=== PATIENT | male | born 1980 | race African-American/Black ===

== ENCOUNTER 2019-04-22 01:34 | Inpatient (IN) | payer SELFPAY ==
[2019-04-22] MEDS ORDERED: SUCCINYLCHOLINE CHLORIDE INJ 200 MG/10 ML VIAL IV ONE (01:39)
[2019-04-22] MEDS ORDERED: DIAZEPAM INJ 10 MG/2 ML DISP.SYRIN IV ONE ×2 (01:39→02:01)
[2019-04-22] MEDS ORDERED: ETOMIDATE INJ/PF 20 MG/10 ML SDV IV ONE ×2 (01:39→05:00)
[2019-04-22] MEDS ORDERED: PROPOFOL 1,000 MG/100 ML INFUS..BTL IV PRN (01:53)
[2019-04-22] MEDS ORDERED: LEVETIRACETAM 1000 MG/NACL-ISO 1,000 MG/100 ML RTUPB IV ONE (01:54)
[2019-04-22] MEDS ORDERED: HYDROMORPHONE HCL INJ/PF 2 MG/ML AMPULE IV ONE (02:03)
[2019-04-22] MEDS ORDERED: VECURONIUM BROMIDE INJ 10 MG VIAL IV ONE ×2 (02:04→02:13)
[2019-04-22] MEDS: PROPOFOL 1,000 MG/100 ML INFUS..BTL IV PRN ×4 (02:18→13:00)
[2019-04-22] MEDS ORDERED: PROPOFOL INJ 200 MG/20 ML VIAL IV ONE (02:19)
[2019-04-22 02:41] LABS: ABSOLUTE EOSINOPHILS # (AUTO) 0.1 10^3/uL (0.0-0.6); ABSOLUTE MONOCYTES (AUTO) 0.7 10^3/uL (0.1-1.4); HEMATOCRIT 49.9 % (37.9-51.0); LYMPHOCYTES % (AUTO) 36.7 % (13-45); MEAN CORPUSCULAR VOLUME 90 fl (80-97); PLATELET COUNT 321 10^3/uL (150-450); RED BLOOD COUNT 5.57 10^6/uL (4.35-5.55); TOTAL CELLS COUNTED % (AUTO) 100 %
[2019-04-22 02:48] LABS: ABSOLUTE NEUT (AUTO) 7.8 10^3/uL (1.7-8.2); BASOPHILS % (AUTO) 0.3 % (0-2); EOSINOPHILS % (AUTO) 0.5 % (0-6); HEMOGLOBIN 16.3 g/dL (13.5-17.0); MEAN CORPUSCULAR HEMOGLOBIN 29.3 pg (27.0-33.4); MEAN CORPUSCULAR HGB CONC 32.7 g/dL (32.0-36.0); MONOCYTES % (AUTO) 4.9 % (3-13); RED CELL DISTRIBUTION WIDTH 14.2 % (11.5-14.0); SEGMENTED NEUTROPHILS % (AUTO) 57.6 % (42-78); WHITE BLOOD COUNT 13.6 10^3/uL (4.0-10.5)
[2019-04-22 03:05] LABS: ALBUMIN 4.7 g/dL (3.5-5.0); ALKALINE PHOSPHATASE 68 U/L (38-126); ASPARTATE AMINO TRANSFERASE 37 U/L (17-59); BILIRUBIN,DIRECT 0.3 mg/dL (0.0-0.4); BILIRUBIN,TOTAL 0.3 mg/dL (0.2-1.3); BLOOD UREA NITROGEN 10 mg/dL (7-20); CALCIUM 9.4 mg/dL (8.4-10.2); CARBON DIOXIDE 23 mmol/L (22-30); CHLORIDE 95 mmol/L (98-107); GLUCOSE 180 mg/dL (75-110); POTASSIUM 4.8 mmol/L (3.6-5.0); TOTAL PROTEIN 7.3 g/dL (6.3-8.2)
[2019-04-22 03:06] LABS: ALCOHOL < 10 mg/dL (NONE DETECTED)
[2019-04-22 03:14] LABS: ANION GAP 22 (5-19)
--- NOTE | 2019-04-22 03:36 | RADIOLOGY REPORT (SQ) ---
CT head without contrast on 04/22/2019 at 2:57 AM CLINICAL INDICATION: Altered mental status, seizure TECHNIQUE: Multiple axial images are obtained throughout the head without the administration of contrast. This exam was performed according to our departmental dose-optimization program, which includes automated exposure control, adjustment of the mA and/or kV according to patient size and/or use of iterative reconstruction technique. Total DLP is 937.36 mGy*cm. COMPARISON: None FINDINGS: There is no hydrocephalus. There is no CT evidence of acute infarct. There is no hemorrhage. There are no abnormal extra-axial fluid collections. There is no mass, mass effect or midline shift. No bony abnormality is noted. IMPRESSION: No acute intracranial abnormality.
--- NOTE | 2019-04-22 03:41 | RADIOLOGY REPORT (SQ) ---
Chest one view on 04/22/2019 at 2:32 AM CLINICAL INDICATION: ET tube placement COMPARISON: None FINDINGS: ET tube tip is in the lower thoracic trachea approximately 1.1 cm above the level the stephen. Would recommend retraction of the ET tube back 2 cm for more optimal positioning. NG tube extends just into the upper stomach with its side-port still in the distal esophagus. Would recommend advancement of the NG tube by 8 cm for more optimal positioning. A few wires are noted projecting over the upper abdomen. The lungs are clear. Cardiac, hilar and mediastinal contours are within normal limits. Pulmonary vascularity is within normal limits. IMPRESSION: ET tube and NG tube as above, recommend repositioning of those tubes as above. Otherwise no acute disease.
[2019-04-22 04:30] LABS: APPEARANCE,URINE CLEAR; BILIRUBIN,URINE NEGATIVE (NEGATIVE); COLOR,URINE YELLOW; GLUCOSE, URINE 150 mg/dL (NEGATIVE); KETONES,URINE NEGATIVE (NEGATIVE); LEUKOCYTE ESTERASE,URINE NEGATIVE (NEGATIVE); NITRITE,URINE NEGATIVE (NEGATIVE); PROTEIN,URINE NEGATIVE (NEGATIVE); URINE SPECIFIC GRAVITY 1.012; UROBILINOGEN,URINE NEGATIVE mg/dL (<2.0)
--- NOTE | 2019-04-22 04:32 | ER Document Report ---
Entered by J LUIS MIGUEL SCRIBE 04/22/19 0140 Acting as scribe for:BRITTANEY ACEVEDO IV, MD ED General - General Stated Complaint: POSSIBLE OVERDOSE,SEIZURE Time Seen by Provider: 04/22/19 01:38 Mode of Arrival: Medic Information source: Emergency Med Personnel Notes: This 38 year old male patient brought in by EMS presents to the ED today with complaints of cardiac arrest and possible overdose that occurred prior to arrival per EMS. EMS states that they administered 4 mg Narcan IM to the patient and that the patient's blood pressure was stable. EMS reports that the patient's pupils were restricted so they administered an additional 1 mg Narcan IV and the patient's respirations increased. EMS reports that patient woke up in a psychotic state and started having seizure-like activity. EMS administered 2.5 mg versed and ativan, but states that patient continued to have seizure-like activity. EMS states that the patient does have a history of seizures and that the patient's friends on scene stated that the patient took cocaine that was possibly laced. TRAVEL OUTSIDE OF THE [place] IN LAST 30 DAYS: No - Related Data Allergies/Adverse Reactions: No Known Allergies Allergy (Unverified 06/22/13 13:33) Past Medical History - General Information source: [facility] Records - Social History Smoking Status: Unknown if Ever Smoked Family History: Reviewed & Not Pertinent Past Surgical History: Reports: Hx Oral Surgery - Immunizations Hx Diphtheria, Pertussis, Tetanus Vaccination: Yes Review of Systems - Review of Systems -: Yes ROS unobtainable due to patient's medical condition - Unresponsive Physical Exam - Vital signs Vitals: Temp Pulse Resp BP Pulse Ox 96.6 F L 119 H 21 H 151/134 H 100 04/22/19 01:34 04/22/19 01:34 04/22/19 01:34 04/22/19 01:34 04/22/19 01:34 - General General appearance: Unresponsive, Other - Epileptic activiy and GCS 4 initially. Patient appeared to improve with IV fluids. - HEENT Head: Normocephalic, Atraumatic Eyes: Normal Pupils: PERRL - Respiratory Respiratory status: No respiratory distress Chest status: Nontender Breath sounds: Normal Chest palpation: Normal - Cardiovascular Rhythm: Tachycardia Heart sounds: Normal auscultation Murmur: No - Abdominal Inspection: Normal Distension: No distension Bowel sounds: Normal Tenderness: Nontender Organomegaly: No organomegaly - Back Back: Normal, Nontender - Extremities General upper extremity: Normal inspection General lower extremity: Normal inspection - Neurological Neuro grossly intact: Yes - Psychological Associated symptoms: Other - Unresponsive - Skin Skin Temperature: Warm Skin Moisture: Dry Skin Color: Normal Course - Vital Signs Vital signs: Temp Pulse Resp BP Pulse Ox 96.6 F L 115 H 16 99/80 L 100 04/22/19 01:34 04/22/19 02:58 04/22/19 05:21 04/22/19 05:21 04/22/19 05:21 - Laboratory Result Diagrams: 04/22/19 01:57 04/22/19 01:57 Laboratory results interpreted by me: 04/22/19 04/22/19 04/22/19 01:57 01:57 04:04 WBC 13.6 H RBC 5.57 H RDW 14.2 H Absolute Lymphs (auto) 5.0 H Chloride 95 L Anion Gap 22 H Glucose 180 H Urine Glucose (UA) 150 H Urine Blood MODERATE H - Consults dr. anderson, runner out Time consulted: 05:10 Reason for consultation: 04/22/19 05:14 drug overdose, pt intubated Consulted provider: will see as inpatient Procedures - Intubation Orotracheal Time of Intubation: 01:48 Airway evaluation: Normal anatomy Mallampati Classification: Class 1 Medications: Etomidate, Succinylcholine Intubation method: Orotracheal Blade type: Otero Blade size: 4 ETT size: 8.0 ETT secured at: Lips ETT secured at (cm): 24 Breath Sounds after Intubation: Equal End tidal CO2 confirmed: Yes Post Intubation Xray: Yes - ett just above stephen, respiratory therapist ordered to pull tube back 2 cm Intubation Complications: No complications Critical Care Note - Critical Care Note Total time excluding time spent on procedures (mins): 60 Discharge - Discharge Clinical Impression: Seizure disorder Drug overdose, multiple drugs Qualifiers: Encounter type: initial encounter Injury intent: undetermined intent Qualified Code(s): T50.914A - Poisoning by multiple unspecified drugs, medicaments and biological substances, undetermined, initial encounter Condition: Fair Disposition: ADMITTED INPATIENT Admitting Provider: Esdras (Differential Tester) Unit Admitted: ICU I personally performed the services described in the documentation, reviewed and edited the documentation which was dictated to the scribe in my presence, and it accurately records my words and actions.
[2019-04-22 04:43] LABS: URINE AMPHETAMINES SCREEN NEGATIVE; URINE BARBITURATES SCREEN NEGATIVE; URINE MARIJUANA (THC) SCREEN NEGATIVE; URINE METHADONE SCREEN NEGATIVE; URINE PHENCYCLIDINE SCREEN NEGATIVE
[2019-04-22 04:44] LABS: URINE BENZODIAZEPINES SCREEN UNCONFIRMED POSITIVE; URINE COCAINE SCREEN UNCONFIRMED POSITIVE
[2019-04-22] MEDS ORDERED: INFLUENZA QUAD (6MOS+) 2019-20 VAC 0.5 ML SYR IM ONE (07:40)
[2019-04-22] MEDS ORDERED: GLUCAGON,HUMAN RECOMB 1 MG INJ SUBCUT PRN (09:16)
[2019-04-22] MEDS ORDERED: DEXTROSE 50%-WATER 25 GM/50 ML DISP.SYRIN IV PRN ×2 (09:16)
[2019-04-22] MEDS ORDERED: DEXTROSE 40% GEL 15 GM TUBE PO PRN ×2 (09:16)
[2019-04-22] MEDS ORDERED: IPRATROPIUM/ALBUTEROL 0.5-2.5 MG/3 ML AMPUL NEB PRN (09:16)
[2019-04-22] MEDS ORDERED: ACETAMINOPHEN 325 MG TABLET PO PRN (09:16)
[2019-04-22] MEDS ORDERED: PHARMACY COMMUNICATION ORDER MC NR (09:30)
[2019-04-22] MEDS ORDERED: ACETAMINOPHEN 325 MG TABLET NG PRN (09:43)
--- NOTE | 2019-04-22 10:31 | RADIOLOGY REPORT (SQ) ---
EXAM DESCRIPTION: KUB/ABDOMEN (SINGLE VIEW) COMPLETED DATE/TIME: 04/22/2019 9:50 am REASON FOR STUDY: Check Placement of NG Tube COMPARISON: None. NUMBER OF VIEWS: One view. TECHNIQUE: Supine radiographic image of the abdomen acquired. LIMITATIONS: None. FINDINGS: BOWEL GAS PATTERN: Normal bowel gas pattern. No dilated loops. Prominent stool throughout the colon. CALCIFICATIONS: No suspicious calcifications. SOFT TISSUES: No gross mass or suggestion of organomegaly. HARDWARE: Nasogastric tube in the stomach. BONES: No acute fracture. No worrisome bone lesions. OTHER: No other significant finding. IMPRESSION: NASOGASTRIC TUBE IN THE STOMACH. NO RADIOGRAPHIC EVIDENCE FOR ACUTE ABDOMINAL DISEASE. TECHNICAL DOCUMENTATION: JOB ID: [id number] [employer]- All Rights Reserved Reading location - IP/workstation name: [email or web address]
[2019-04-22] MEDS: RINGERS SOLUTION,LACTATED 1,000 ML IV PRN (10:46)
[2019-04-22] MEDS: CEFTRIAXONE 1 GM/D5W RTU 1 GM/50 ML RTUPB IV SCH (10:46)
[2019-04-22] MEDS: ASPIRIN 81 MG TABLET, CHEWABLE PO SCH (10:47)
[2019-04-22] MEDS: FAMOTIDINE INJ/PF 20 MG/2 ML SDV IV SCH ×2 (10:47→21:54)
[2019-04-22] MEDS: ENOXAPARIN SODIUM INJ 40 MG/0.4 ML DISP.SYRIN SUBCUT SCH (10:47)
--- NOTE | 2019-04-22 11:01 | PDOC CRITICAL CARE PROG REPORT ---
General Date:: 04/22/19 - Critical Care Attending Events in the past 12 to 24 Hours:: Pt remains intubated and sedated Reason for ICU Addmission:: Respiratory Failure - Medications: Medications reviewed and adjusted accordingly: Yes Physical Exam Vital Signs: Temp Pulse Resp BP Pulse Ox 96.8 F L 93 16 130/107 H 100 04/22/19 08:00 04/22/19 08:00 04/22/19 08:00 04/22/19 08:00 04/22/19 09:18 Intake & Output 04/21/19 04/22/19 04/23/19 06:59 06:59 06:59 Intake Total 188 131 Output Total 550 320 Balance -362 -189 Weight 70.3 kg 69.1 kg Weight/Height Weight 69.1 kg Height 5 ft 7 in General appearance: PRESENT: no acute distress, well-developed, well-nourished, other - intubated, sedated Head exam: PRESENT: atraumatic, normocephalic Respiratory exam: PRESENT: unlabored Cardiovascular exam: PRESENT: RRR GI/Abdominal exam: PRESENT: soft Gentrourinary exam: PRESENT: indwelling catheter Extremities exam: PRESENT: other - no edema Laboratory/Radiographs Laboratory Results: 04/22/19 01:57 04/22/19 01:57 04/22/19 04/22/19 04/22/19 01:57 01:57 04:04 WBC 13.6 H RBC 5.57 H Hgb 16.3 Hct 49.9 MCV 90 MCH 29.3 MCHC 32.7 RDW 14.2 H Plt Count 321 Seg Neutrophils % 57.6 Sodium 139.6 Potassium 4.8 Chloride 95 L Carbon Dioxide 23 Anion Gap 22 H BUN 10 Creatinine 0.96 Est GFR ( Amer) > 60 Glucose 180 H Calcium 9.4 Total Bilirubin 0.3 AST 37 Alkaline Phosphatase 68 Total Protein 7.3 Albumin 4.7 Urine Color YELLOW Urine Appearance CLEAR Urine pH 5.0 Ur Specific [place] 1.012 Urine Protein NEGATIVE Urine Glucose (UA) 150 H Urine Ketones NEGATIVE Urine Blood MODERATE H Urine Nitrite NEGATIVE Ur Leukocyte Esterase NEGATIVE Urine WBC (Auto) 0 Urine RBC (Auto) 1 Impressions: Head CT 04/22/19 01:54 IMPRESSION: No acute intracranial abnormality. Chest X-Ray 04/22/19 01:57 IMPRESSION: ET tube and NG tube as above, recommend repositioning of those tubes as above. Otherwise no acute disease. KUB X-Ray 04/22/19 09:20 IMPRESSION: NASOGASTRIC TUBE IN THE STOMACH. NO RADIOGRAPHIC EVIDENCE FOR ACUTE ABDOMINAL DISEASE. EKG: ST elevation in anterior leads. All labs, radiographs, diagnostic studies and EKGs were personally reviewed: Yes Assessment and Plan - Diagnosis (1) Respiratory failure Qualifiers: Chronicity: acute Respiratory failure complication: hypercapnia Qualified Code(s): J96.02 - Acute respiratory failure with hypercapnia Is this a current diagnosis for this admission?: Yes (2) Drug overdose, multiple drugs Qualifiers: Encounter type: initial encounter Injury intent: undetermined intent Qualified Code(s): T50.914A - Poisoning by multiple unspecified drugs, medica ments and biological substances, undetermined, initial encounter Is this a current diagnosis for this admission?: Yes (3) Seizure disorder Is this a current diagnosis for this admission?: Yes Plan Summary: Assessment: Critically ill 38 yo man with acute respiratory failure,drug overdose, seizure disorder, cocaine intoxication Plan: 1. Respiratory: acute respiratory failure. Pt intubated in the ED. Continue full vent support 2. CV: heart rate and BP acceptable. EKG shows ST elevation in anterior leads. Will check troponins. Will order echo. Will start asa 3. Neuro: seizures. h/o seizure disorder. Continue proprofol. Start keppra. EEG not available until 04/24. 4: ID: leukocytosis. Will repeat CXR. will order cultures and check for influenza. Will start rocephin empirically 5. Psych: drug abuse, cocain intoxication 6. Endocrine: monitoring blood sugars 7. Nutrition: start tube feeds 8. Prophylaxis: lovenox Critical Time Critical Time (minutes): 40 Level of Care: ICU -: 1. The care of a critical patient is a dynamic process. This note is a guest services representative synopsis but static in nature. The timeframe for treatments given in order is not necessarily the actual time these treatments may have been done. 2. This patient requires critical care secondary to ongoing requirements for therapy not offered or safe outside the critical care environment. Transfer to a lower level of care will result in altered life or limb morbidity and mortality. 3. Multidisciplinary rounds completed. 4. ABCDE bundle addressed.
[2019-04-22] MEDS ORDERED: SUCCINYLCHOLINE CHLORIDE INJ 200 MG/10 ML VIAL ONE (11:20)
[2019-04-22] MEDS: LORAZEPAM INJ 2 MG/1 ML VIAL IV PRN ×2 (13:42→16:55)
[2019-04-22] MEDS: ONDANSETRON HCL INJ/PF 4 MG/2 ML SDV IV PRN ×3 (13:42→22:38)
[2019-04-22 16:37] LABS: A TYPE INFLUENZA AG NEGATIVE (NEGATIVE); B INFLUENZA AG NEGATIVE (NEGATIVE)
[2019-04-22] MEDS ORDERED: LEVETIRACETAM 500 MG/NACL-ISO 500 MG/100 ML RTUPB IV SCH (22:00)
[2019-04-22] MEDS ORDERED: LEVETIRACETAM 500 MG in NORMAL SALINE 100 ML IV SCH (22:00)
[2019-04-23] MEDS: RINGERS SOLUTION,LACTATED 1,000 ML IV PRN (00:09)
[2019-04-23] MEDS: PROPOFOL 1,000 MG/100 ML INFUS..BTL IV PRN (00:09)
--- NOTE | 2019-04-23 00:16 | EKG REPORT ---
SEVERITY:- ABNORMAL ECG - SINUS TACHYCARDIA ST ELEVATION SUGGESTS PERICARDITIS : Confirmed by: Ian Orellana 23-Apr-2019 00:16:02
--- NOTE | 2019-04-23 00:16 | EKG REPORT ---
SEVERITY:- ABNORMAL ECG - SINUS RHYTHM ST ELEVATION SUGGESTS PERICARDITIS : Confirmed by: Ian Orellana 23-Apr-2019 00:15:47
[2019-04-23 06:46] LABS: HEMATOCRIT 41.5 % (37.9-51.0); HEMOGLOBIN 14.3 g/dL (13.5-17.0); MEAN CORPUSCULAR HEMOGLOBIN 29.5 pg (27.0-33.4); MEAN CORPUSCULAR HGB CONC 34.4 g/dL (32.0-36.0); PLATELET COUNT 255 10^3/uL (150-450); RED BLOOD COUNT 4.84 10^6/uL (4.35-5.55); RED CELL DISTRIBUTION WIDTH 14.4 % (11.5-14.0); WHITE BLOOD COUNT 9.4 10^3/uL (4.0-10.5)
[2019-04-23 06:54] LABS: MEAN CORPUSCULAR VOLUME 86 fl (80-97)
[2019-04-23 07:06] LABS: ANION GAP 5 (5-19); BLOOD UREA NITROGEN 11 mg/dL (7-20); CALCIUM 8.9 mg/dL (8.4-10.2); CARBON DIOXIDE 31 mmol/L (22-30); CHLORIDE 103 mmol/L (98-107); GLUCOSE 92 mg/dL (75-110); POTASSIUM 4.1 mmol/L (3.6-5.0)
--- NOTE | 2019-04-23 07:17 | RADIOLOGY REPORT (SQ) ---
EXAM: XR Chest, 1 View EXAM DATE/TIME: 04/23/2019 6:53 AM CLINICAL HISTORY: The patient is 38 years old and is Male; Possible aspiration TECHNIQUE: Frontal view of the chest. COMPARISON: Chest radiograph from 04/22/2019 at 2:32 AM FINDINGS: LUNGS: Unremarkable. No consolidation. PLEURAL SPACE: Unremarkable. No pneumothorax. HEART: No significant enlargement of the cardiac silhouette. MEDIASTINUM: Unremarkable. BONES/JOINTS: The bones are unchanged. TUBES, LINES AND DEVICES: Endotracheal tube terminates 4 cm above the stephen. Enteric tube terminates at the level of the mid to upper thoracic esophagus. IMPRESSION: Enteric tube terminates at the level of the mid to upper thoracic esophagus. Recommend advancement.
[2019-04-23] MEDS ORDERED: LEVETIRACETAM 500 MG TABLET PO SCH (10:00)
[2019-04-23] MEDS: CEFTRIAXONE 1 GM/D5W RTU 1 GM/50 ML RTUPB IV SCH (10:58)
[2019-04-23] MEDS: ASPIRIN 81 MG TABLET, CHEWABLE PO SCH (10:59)
[2019-04-23] MEDS: ENOXAPARIN SODIUM INJ 40 MG/0.4 ML DISP.SYRIN SUBCUT SCH (10:59)
--- NOTE | 2019-04-23 14:51 | PDOC DISCHARGE SUMMARY ---
Impression - Admit/DC Date/PCP Admission Date/Primary Care Provider: 04/22/19 05:39 Discharge Date: 04/23/19 - Assessment Summary: This patient is a 38 yo man who was brought to the ED with an altered LOC and intubated for airway protection. He is now awake oriented and extubated. He admits to cocaine use and may have a seizure disorder. It is not known if he has a disorder or this is due to cocaine. He has eaten, walked, will go home with his mother. EEG and keppra as out patient. - Additional Information Resuscitation Status: Full Code Discharge Diet: Regular Discharge Activity: Activity As Tolerated Referrals: CARLOS ALBERTO PULLIAM DO [NO LOCAL MD] - Follow up as needed Home Medications: No Home Medications 04/23/19 History of Present Illiness History of Present Illness: SAMM MOYA is a 38 year old male Hospital Course Hospital Course: He did well, was extubated easily. Ready to go home. Physical Exam Vital Signs: Temp Pulse Resp BP Pulse Ox 99.0 F 85 23 H 112/69 98 04/23/19 12:00 04/23/19 12:00 04/23/19 12:00 04/23/19 12:00 04/23/19 12:00 Intake & Output 04/22/19 04/23/19 04/24/19 06:59 06:59 06:59 Intake Total 188 1600 100 Output Total 550 1164 550 Balance -362 436 -450 Weight 70.3 kg 69.1 kg General appearance: PRESENT: no acute distress, well-developed, well-nourished Head exam: PRESENT: atraumatic, normocephalic Eye exam: PRESENT: conjunctiva pink, EOMI, PERRLA. ABSENT: scleral icterus Ear exam: PRESENT: normal external ear exam Mouth exam: PRESENT: moist, tongue midline Respiratory exam: PRESENT: clear to auscultation danitza. ABSENT: rales, rhonchi, wheezes Cardiovascular exam: PRESENT: RRR. ABSENT: diastolic murmur, rubs, systolic murmur GI/Abdominal exam: PRESENT: normal bowel sounds, soft. ABSENT: distended, guarding, mass, organolmegaly, rebound, tenderness Rectal exam: PRESENT: deferred Extremities exam: PRESENT: full ROM. ABSENT: calf tenderness, clubbing, pedal edema Neurological exam: PRESENT: alert, awake, oriented to person, oriented to place, oriented to time, oriented to situation, CN II-XII grossly intact. ABSENT: motor sensory deficit Psychiatric exam: PRESENT: appropriate affect, normal mood. ABSENT: homicidal ideation, suicidal ideation Skin exam: PRESENT: dry, intact, warm. ABSENT: cyanosis, rash Results Laboratory Results: WBC 9.4 10^3/uL (4.0-10.5) 04/23/19 06:27 RBC 4.84 10^6/uL (4.35-5.55) 04/23/19 06:27 Hgb 14.3 g/dL (13.5-17.0) 04/23/19 06:27 Hct 41.5 % (37.9-51.0) 04/23/19 06:27 MCV 86 fl (80-97) D 04/23/19 06:27 MCH 29.5 pg (27.0-33.4) 04/23/19 06:27 MCHC 34.4 g/dL (32.0-36.0) 04/23/19 06:27 RDW 14.4 % (11.5-14.0) H 04/23/19 06:27 Plt Count 255 10^3/uL (150-450) 04/23/19 06:27 Lymph % (Auto) 36.7 % (13-45) 04/22/19 01:57 [place] % (Auto) 4.9 % (3-13) 04/22/19 01:57 Eos % (Auto) 0.5 % (0-6) 04/22/19 01:57 Baso % (Auto) 0.3 % (0-2) 04/22/19 01:57 Absolute Neuts (auto) 7.8 10^3/uL (1.7-8.2) 04/22/19 01:57 Absolute Lymphs (auto) 5.0 10^3/uL (0.5-4.7) H 04/22/19 01:57 Absolute Monos (auto) 0.7 10^3/uL (0.1-1.4) 04/22/19 01:57 Absolute Eos (auto) 0.1 10^3/uL (0.0-0.6) 04/22/19 01:57 Absolute Basos (auto) 0.0 10^3/uL (0.0-0.2) 04/22/19 01:57 Seg Neutrophils % 57.6 % (42-78) 04/22/19 01:57 Platelet Estimate Cancelled 04/23/19 04:04 Sodium 139.0 mmol/L (137-145) 04/23/19 06:27 Potassium 4.1 mmol/L (3.6-5.0) 04/23/19 06:27 Chloride 103 mmol/L (98-107) 04/23/19 06:27 Carbon Dioxide 31 mmol/L (22-30) H 04/23/19 06:27 Anion Gap 5 (5-19) 04/23/19 06:27 BUN 11 mg/dL (7-20) 04/23/19 06:27 Creatinine 1.19 mg/dL (0.52-1.25) 04/23/19 06:27 Est GFR ( Amer) > 60 (>60) 04/23/19 06:27 Est GFR (Non-Af Amer) Cancelled 04/23/19 04:04 Est GFR (MDRD) Non-Af > 60 (>60) 04/23/19 06:27 Glucose 92 mg/dL (75-110) 04/23/19 06:27 Calcium 8.9 mg/dL (8.4-10.2) 04/23/19 06:27 Total Bilirubin 0.3 mg/dL (0.2-1.3) 04/22/19 01:57 Direct Bilirubin 0.3 mg/dL (0.0-0.4) 04/22/19 01:57 Neonat Total Bilirubin Not Reportable 04/22/19 01:57 Neonat Direct Bilirubin Not Reportable 04/22/19 01:57 Neonat Indirect Bili Not Reportable 04/22/19 01:57 AST 37 U/L (17-59) 04/22/19 01:57 ALT 31 U/L (<50) 04/22/19 01:57 Alkaline Phosphatase 68 U/L (38-126) 04/22/19 01:57 Troponin I < 0.012 ng/mL 04/23/19 06:27 Total Protein 7.3 g/dL (6.3-8.2) 04/22/19 01:57 Albumin 4.7 g/dL (3.5-5.0) 04/22/19 01:57 EGFR Cancelled 04/23/19 04:04 Urine Color YELLOW 04/22/19 04:04 Urine Appearance CLEAR 04/22/19 04:04 Urine pH 5.0 (5.0-9.0) 04/22/19 04:04 Ur Specific [place] 1.012 04/22/19 04:04 Urine Protein NEGATIVE mg/dL (NEGATIVE) 04/22/19 04:04 Urine Glucose (UA) 150 mg/dL (NEGATIVE) H 04/22/19 04:04 Urine Ketones NEGATIVE mg/dL (NEGATIVE) 04/22/19 04:04 Urine Blood MODERATE (NEGATIVE) H 04/22/19 04:04 Urine Nitrite NEGATIVE (NEGATIVE) 04/22/19 04:04 Urine Bilirubin NEGATIVE (NEGATIVE) 04/22/19 04:04 Urine Urobilinogen NEGATIVE mg/dL (<2.0) 04/22/19 04:04 Ur Leukocyte Esterase NEGATIVE (NEGATIVE) 04/22/19 04:04 Urine WBC (Auto) 0 /HPF 04/22/19 04:04 Urine RBC (Auto) 1 /HPF 04/22/19 04:04 U Hyaline Cast (Auto) 4 /LPF 04/22/19 04:04 Squamous Epi Cells Auto <1 /HPF 04/22/19 04:04 Urine Mucus (Auto) RARE /LPF 04/22/19 04:04 Urine Ascorbic Acid NEGATIVE (NEGATIVE) 04/22/19 04:04 Urine Opiates Screen UNCONFIRMED POSITIVE 04/22/19 04:04 Urine Methadone Screen NEGATIVE 04/22/19 04:04 Ur Barbiturates Screen NEGATIVE 04/22/19 04:04 Ur Phencyclidine Scrn NEGATIVE 04/22/19 04:04 Ur Amphetamines Screen NEGATIVE 04/22/19 04:04 U Benzodiazepines Scrn UNCONFIRMED POSITIVE 04/22/19 04:04 Urine Cocaine Screen UNCONFIRMED POSITIVE 04/22/19 04:04 U Marijuana (THC) Screen NEGATIVE 04/22/19 04:04 Serum Alcohol < 10 mg/dL (NONE DETECTED) 04/22/19 01:57 Influenza A (Rapid) NEGATIVE (NEGATIVE) 04/22/19 15:35 Influenza B (Rapid) NEGATIVE (NEGATIVE) 02/02/20 15:35 Slides for Path Review Cancelled 04/23/19 04:04 04/22/19 04/22/19 04/23/19 13:31 21:52 04:04 Troponin I 0.017 < 0.012 Cancelled 04/23/19 06:27 Troponin I < 0.012 EKG Comments: SR. Some question of ST elavations C/W pericarditis. No pain. Impressions: Head CT 04/22/19 01:54 IMPRESSION: No acute intracranial abnormality. Chest X-Ray 04/22/19 01:57 IMPRESSION: ET tube and NG tube as above, recommend repositioning of those tubes as above. Otherwise no acute disease. KUB X-Ray 04/22/19 09:20 IMPRESSION: NASOGASTRIC TUBE IN THE STOMACH. NO RADIOGRAPHIC EVIDENCE FOR ACUTE ABDOMINAL DISEASE. Chest X-Ray 04/23/19 06:00 IMPRESSION: Enteric tube terminates at the level of the mid to upper thoracic esophagus. Recommend advancement. Plan Health Concerns: Recurrance of seizures. Plan of Treatment: Out patient EEG, keppra 500mg bid. Follow up with his primary MD. Goals: No further cocaine use and definitive dx of seizures or not. Critical Time: 35 Level of Care: ICU Stroke Is this a Stroke Patient?: No Acute Heart Failure - Is this a Heart Failure Patient?: No
[2019-04-23 15:17] VITALS: BP 112/69
--- NOTE | 2019-04-23 22:30 | XCELERA REPORT ---
[address] [address] Transthoracic Echocardiogram Report Name: SAMM MOYA Age: 38 yrs Gender: Male : 1980 Patient Status: Inpatient Patient Location: ICU^609^A Study Date: 04/23/2019 09:45 AM Height: 67 in Weight: 152 lb BSA: 1.8 m2 Procedure: A two-dimensional transthoracic echocardiogram with color flow and Doppler was performed. Study Quality: Fair. Reason For Study: eval for pericarditis History: PERICARDITIS. Ordering Physician: MICHELLE COLON Performed By: Lindsay Bledsoe Interpretation Summary The left ventricle is normal in size. There is normal left ventricular wall thickness. LV EF is Greater than 65% Left ventricular systolic function is low normal. Doppler measurements suggest normal left ventricular diastolic function The left ventricular wall motion is normal. There is no thrombus. No ASD ,VSD , or PFO seeen. The right ventricle is not well visualized secondary to technical limitations The right atrium is normal. The left atrial size is normal. There is no evidence of mitral valve prolapse. There is no vegetation seen on the mitral valve. There is no mitral valve stenosis. There is a trace amount of mitral regurgitation There is no aortic valvular vegetation. There is no aortic valve stenosis There is no LVOT obstruction. No aortic regurgitation is present. There is no tricuspid stenosis. There is a trace amount of tricuspid regurgitation Right ventricular systolic pressure is normal. RVSP is 24 to 29 mm of Hg , with RA mean of 5 to 10. There is no pulmonic valvular stenosis. There is no pulmonic valvular regurgitation. The aortic root is normal size. The inferior vena cava appeared normal and decreased > 50% with respiration (RAP 5-10 mmHg) There is no pericardial effusion. No echo evidence of pericarditis. MMode/2D Measurements & Calculations RVDd: 2.8 cm LVIDd: 4.6 cm FS: 37.8 % Ao root diam: 2.8 cm IVSd: 0.97 cm LVIDs: 2.9 cm EDV(Teich): 98.9 ml Ao root area: 6.1 cm2 LVPWd: 0.97 cm ESV(Teich): 31.7 ml EF(Teich): 68.0 % Doppler Measurements & Calculations MV E max jarod: MV dec slope: Ao V2 max: LV V1 max P.8 cm/sec 567.3 cm/sec2 127.2 cm/sec 6.0 mmHg MV A max jarod: MV dec time: 0.18 secAo max PG: LV V1 max: 74.1 cm/sec 6.5 mmHg 122.9 cm/sec MV E/A: 1.3 PA V2 max: TR max jarod: 108.4 cm/sec 217.4 cm/sec PA max P.7 mmHg TR max P.0 mmHg Left Ventricle The left ventricle is normal in size. There is normal left ventricular wall thickness. LV EF is Greater than 65%. Left ventricular systolic function is low normal. Doppler measurements suggest normal left ventricular diastolic function. The left ventricular wall motion is normal. There is no thrombus. No ASD ,VSD , or PFO seeen. Right Ventricle The right ventricle is not well visualized secondary to technical limitations. Atria The right atrium is normal. The left atrial size is normal. Mitral Valve There is no evidence of mitral valve prolapse. There is no vegetation seen on the mitral valve. There is no mitral valve stenosis. There is a trace amount of mitral regurgitation. Aortic Valve There is no aortic valvular vegetation. There is no aortic valve stenosis. There is no LVOT obstruction. No aortic regurgitation is present. Tricuspid Valve There is no tricuspid stenosis. There is a trace amount of tricuspid regurgitation. Right ventricular systolic pressure is normal. RVSP is 24 to 29 mm of Hg , with RA mean of 5 to 10. Pulmonic Valve There is no pulmonic valvular stenosis. There is no pulmonic valvular regurgitation. Great Vessels The aortic root is normal size. The inferior vena cava appeared normal and decreased > 50% with respiration (RAP 5-10 mmHg). Effusions There is no pericardial effusion. No echo evidence of pericarditis. : MICHELLE COLON Lakshmi
== END 2019-04-23 15:40 | disposition home or self-care (01) | DRG 208 ==
LOC: ER 01:34 → EH 05:39 → ICU 07:00
PROVIDERS: ADMIT Internal Medicine; ATTEND Internal Medicine
PROC: 5A1945Z Respiratory Ventilation, 24-96 Consecutive Hours (ICD-10-PCS; principal; 2019-04-22)
PROC: 0BH17EZ Insertion of Endotracheal Airway into Trachea, Via Natural or Artificial Opening (ICD-10-PCS; 2019-04-22)
DX: J96.01 Acute respiratory failure with hypoxia (principal); F14.129 Cocaine abuse with intoxication, unspecified; J96.02 Acute respiratory failure with hypercapnia; G40.909 Epilepsy, unspecified, not intractable, without status epilepticus; Z78.1 Physical restraint status
CPT/HCPCS: 36415; 51702; 70450; 71045; 74018; 80048; 80053; 80307; 81001; 84484; 85025; 85027; 87040; 87070; 87077; 87186; 87205; 87804; 93005; 93010; 93306; 94002; 94003; 96365; 96375; 99239; 99291; J0330; J0696; J1170; J1650; J1953; J2060; J2405; J2704; J3360; J3490; J7120; S0028